=== PATIENT | female | born 1935 ===

== ENCOUNTER 2022-12-23 18:13 | Emergency (ER) | payer SELFPAY ==
[~2022-12-23] VITALS: Ht 152.4 cm; Wt 68.0 kg
[2022-12-23 18:32] VITALS: BP 150/86
== END 2022-12-23 18:35 | disposition home or self-care (01) ==
LOC: ER 18:13
DX: S50.312A Abrasion of left elbow, initial encounter (principal); W10.0XXA Fall (on)(from) escalator, initial encounter
CPT/HCPCS: 99282